=== PATIENT | female | born 1995 ===

== ENCOUNTER 2017-08-03 21:14 | Emergency (ER) | payer SELFPAY ==
[~2017-08-03] VITALS: Ht 165.1 cm; Wt 75.0 kg
[2017-08-03 21:17] VITALS: BP 112/73
== END 2017-08-04 00:33 | disposition left against medical advice (07) ==
LOC: EMS 21:16
DX: R51 Headache (principal); Z53.21 Procedure and treatment not carried out due to patient leaving prior to being seen by health care provider
CPT/HCPCS: 99281